=== PATIENT | male | born 1955 | race Caucasian/White ===

== ENCOUNTER → 2018-12-14 | Outpatient (CLI) | payer MEDICARE ==
--- NOTE | 2018-12-14 09:26 | US ---
EXAMINATION TYPE: US kidneys/renal and bladder DATE OF EXAM: 12/14/2018 COMPARISON: NONE CLINICAL HISTORY: Z13.6 Screening for Abdominal aortic aneurysm, UTI. EXAM MEASUREMENTS: Right Kidney: 10.2 x 4.7 x 5.6 cm Left Kidney: 10.8 x 5.0 x 4.8 cm Post Void Residual Volume: 114.4 mL Right Kidney: No hydronephrosis or masses seen Left Kidney: No hydronephrosis or masses seen possible non obstructing calculi mid anterior Bladder: wnl Bilateral Jets seen: Yes Normal Post Void Residual: No IMPRESSION: 1. Punctate renal cortical calcification left kidney. 2. No suspicious acute ultrasound abnormality
--- NOTE | 2018-12-14 10:13 | US ---
EXAMINATION TYPE: US duplex aorta DATE OF EXAM: 12/14/2018 COMPARISON: NONE CLINICAL HISTORY: Z13.6 Screening for Abdominal aortic aneurysm, UTI. EXAM MEASUREMENTS: Abdominal Aorta: Proximal: 2.2cm Mid: 1.5 cm Distal: 1.3 cm Bifurcation: RINA: 0.8 cm , DOROTEO 0.7cm IMPRESSION: 1. No aneurysmal dilatation within the aorta on this screening ultrasound.
== END | disposition home or self-care (01) ==
LOC: RADUSWWP 06:55
PROVIDERS: ATTEND Internal Medicine
DX: N28.89 Other specified disorders of kidney and ureter (principal); Z13.6 Encounter for screening for cardiovascular disorders
CPT/HCPCS: 76770; 93979

== ENCOUNTER → 2018-12-28 | Outpatient (CLI) | payer MEDICARE ==
--- NOTE | 2018-12-28 10:32 | CTL ---
EXAMINATION TYPE: CT Low Dose Lung DATE OF EXAM ORDERED: 12/28/2018 HISTORY: Prior history tobacco use. Lung cancer screening CT DLP: [address] CTDI: 2.03 mGy Automated exposure control for dose reduction was used. SCREENING VISIT: 1 COMPARISON: Chest x-ray 08/14/2014 TECHNIQUE: Low dose computed tomography scan was performed through the chest at 1 mm thick sections a nd reconstructed images in the coronal plane at [address] DIAGNOSTIC QUALITY: Satisfactory FINDINGS: LUNG NODULES: None. There are nodule with a size of 3 mm. Right upper lobe nodule is calcified on CT image 41, 60, 108, 1 26 and 128, 194, 139 and 144, 1:30 and left lower lobe axial image 247, 103, 94, 76, 31 and 34, 36. LUNGS: COPD: Severity: Mild Fibrosis: Severity: None Lymph nodes: None Other findings: Small amount of possible retained secretions along the trachea RIGHT PLEURAL SPACE: Effusion: None Calcification: None Thickening: None Pneumothorax: None LEFT PLEURAL SPACE: Effusion: None Calcification: None Thickening: None Pneumothorax: None HEART: Heart Size: Small Coronary calcification: None Pericardial effusion: None OTHER FINDINGS: Upper abdomen: Small hiatal hernia Bony thorax: Thoracic spondylosis is present, flowing anterior osteophytes with relative preservation of disc base may be indicative of diffuse idiopathic skeletal hyperostosis Supraclavicular region: Normal Other: IMPRESSION: Benign FOLLOW UP CT CHEST RECOMMENDATION: [address] LUNG RAD: 2
== END ==
LOC: RADCTMAIN 07:21
PROVIDERS: ATTEND Internal Medicine
DX: Z12.2 Encounter for screening for malignant neoplasm of respiratory organs (principal); Z87.891 Personal history of nicotine dependence

== ENCOUNTER → 2020-05-09 | Outpatient (CLI) | payer MEDICARE ==
--- NOTE | 2020-05-09 08:16 | CTL ---
EXAMINATION TYPE: CT Low Dose Lung DATE OF EXAM ORDERED: 05/09/2020 HISTORY: . Lung cancer screening CT DLP: [address] CTDI: 2.2 mGy Automated exposure control for dose reduction was used. SCREENING VISIT: COMPARISON: 12/28/2018 TECHNIQUE: Low dose computed tomography scan was performed through the chest at 1 mm thick sections a nd reconstructed images in the coronal plane at [address] DIAGNOSTIC QUALITY: Satisfactory FINDINGS: LUNG NODULES: There are multiple sub-5 mm nodules some of which are calcified similar appearance to the prior study . LUNGS: COPD: Severity: Mild to moderate Fibrosis: Severity: Mild Lymph nodes: None Other findings: Mild central basilar bronchiectasis. PLEURAL SPACE: Effusion: None Calcification: None Thickening: None Pneumothorax: None HEART: Heart Size: Normal Coronary calcification: Three-vessel dense coronary artery calcification Pericardial effusion: None OTHER FINDINGS: Small hiatal hernia. Multilevel hypertrophic and degenerative change spine. IMPRESSION: 1. Multiple sub-5 mm nodules some of which are calcified have a benign appearance and are stable. 2. 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 3. three-vessel coronary artery disease. FOLLOW UP CT CHEST RECOMMENDATION: Annual follow-up recommended in one year CT LUNG RAD: 2
== END | disposition home or self-care (01) ==
LOC: RADCTMAIN 06:55
PROVIDERS: ATTEND Internal Medicine
DX: R91.8 Other nonspecific abnormal finding of lung field (principal); J47.9 Bronchiectasis, uncomplicated; F17.200 Nicotine dependence, unspecified, uncomplicated

== ENCOUNTER → 2021-04-03 | Outpatient (CLI) | payer MEDICARE ==
[2021-04-03 10:58] LABS: HCT 49.9 % (39.0-53.0); HGB 16.9 gm/dL (13.0-17.5); MCH 30.9 pg (25.0-35.0); MCHC 33.9 g/dL (31.0-37.0); MCV 91.2 fL (80.0-100.0); Mean Platelet Volume 7.6; Platelet Count 203 k/uL (150-450); RBC 5.47 m/uL (4.30-5.90); RDW 12.6 % (11.5-15.5); WBC 10.6 k/uL (3.8-10.6)
[2021-04-03 12:36] LABS: ALT 25 U/L (4-49); AST 23 U/L (17-59); African American GFR (CKD) >90 (>60 ml/min/1.73 sqM); Albumin 4.2 g/dL (3.5-5.0); Alkaline Phosphatase 86 U/L (38-126); Anion Gap 8 mmol/L; Blood Urea Nitrogen 14 mg/dL (9-20); Calcium 9.9 mg/dL (8.4-10.2); Carbon Dioxide 27 mmol/L (22-30); Chloride 104 mmol/L (98-107); Glucose 119 mg/dL (74-99); Non-African American GFR(CKD) >90 (>60 ml/min/1.73 sqM); Potassium 4.6 mmol/L (3.5-5.1); Sodium 139 mmol/L (137-145); Total Bilirubin 0.6 mg/dL (0.2-1.3); Total Protein 6.6 g/dL (6.3-8.2)
[2021-04-04 13:43] LABS: Chol/HDL Ratio 5.48; Cholesterol 137 mg/dL (0-200); LDL Cholesterol,Calculated 81.6 mg/dL (0.0-131.0)
[2021-04-04 13:51] LABS: Prostate Specific Antigen 0.9 ng/mL (0.0-4.5)
== END ==
LOC: LABT 09:46
PROVIDERS: ATTEND Family Medicine
DX: Z00.01 Encounter for general adult medical examination with abnormal findings (principal); E78.5 Hyperlipidemia, unspecified; Z12.5 Encounter for screening for malignant neoplasm of prostate; F17.200 Nicotine dependence, unspecified, uncomplicated
CPT/HCPCS: 80053; 80061; 84153; 85027

== ENCOUNTER → 2021-05-11 | Outpatient (CLI) | payer MEDICARE ==
--- NOTE | 2021-05-11 08:49 | CTL ---
EXAMINATION TYPE: CT Low Dose Lung DATE OF EXAM ORDERED: 05/11/2021 COMPARISON: 05/11/2021 HISTORY: . Low Dose CT Lung Screening CT DLP: 124.[address] CTDI: 3.2 mGy IV CONTRAST USED: None. SCREENING VISIT: Second visit TECHNIQUE: Low dose computed tomography scan was performed through the chest at 1 millimeter thick se ctions and reconstructed images in the coronal plane at [address] DIAGNOSTIC QUALITY: Satisfactory FINDINGS: LUNG NODULES: Again noted are there are multiple sub-5 mm nodules some of which are calcified similar appearance to the prior study. LUNGS: COPD: Severity: Mild Fibrosis: Severity: Mild right upper lobe Lymph nodes: None Other findings: None RIGHT PLEURAL SPACE: Effusion: None Calcification: None Thickening: None Pneumothorax: None LEFT PLEURAL SPACE: Effusion: None Calcification: None Thickening: None Pneumothorax: None HEART: Heart Size: Mildly enlarged Coronary calcification: Three-vessel coronary artery calcifications redemonstrated. Pericardial effusion: None OTHER FINDINGS: Upper abdomen: No significant abnormality Bony thorax: Degenerative changes Supraclavicular region: No significant abnormalityOther: No significant abnormalityI IMPRESSION: 1. Stable sub-5 mm pulmonary nodules some which are calcified. 2. COPD with a mild right upper lobe fibrosis. FOLLOW UP CT CHEST RECOMMENDATION: Follow-up screening in one year. Smoking cessation recommended. CT LUNG RAD: LUNG RAD CATEGORY 2 benign
== END | disposition home or self-care (01) ==
LOC: RADCTMAIN 06:48
PROVIDERS: ATTEND Family Medicine
DX: Z12.2 Encounter for screening for malignant neoplasm of respiratory organs (principal); R91.8 Other nonspecific abnormal finding of lung field; J44.9 Chronic obstructive pulmonary disease, unspecified; J84.10 Pulmonary fibrosis, unspecified
CPT/HCPCS: 71271

== ENCOUNTER → 2022-05-31 | Outpatient (CLI) | payer MEDICARE ==
--- NOTE | 2022-05-31 12:11 | CTL ---
EXAMINATION TYPE: CT Low Dose Lung DATE OF EXAM ORDERED: 05/31/2022 HISTORY: Long-term tobacco use. Lung cancer screening CT DLP: 98.[address] CTDI: 2.4 mGy Automated exposure control for dose reduction was used. SCREENING VISIT: Third after baseline COMPARISON: Prior studies 2020 through 2018 TECHNIQUE: Low dose computed tomography scan was performed through the chest at 1 mm thick sections a nd reconstructed images in multiple planes at 1 mm and [address] DIAGNOSTIC QUALITY: Satisfactory FINDINGS: LUNG NODULES: None. No greater than 5 mm noncalcified pulmonary nodules. Redemonstration of scattered sub-5 mm pulmonary nodules several which are calcified bilaterally. LUNGS: COPD: Severity: Mild Fibrosis: Severity: None Lymph nodes: None Other findings: None RIGHT PLEURAL SPACE: Effusion: None Calcification: None Thickening: None Pneumothorax: None LEFT PLEURAL SPACE: Effusion: None Calcification: None Thickening: None Pneumothorax: None HEART: Heart Size: Normal Coronary Calcification: Mild to moderate Pericardial Effusion: None OTHER FINDINGS: Upper abdomen: Cholecystectomy clips are redemonstrated Bony thorax: Slight underlying scoliotic curvature. Bridging osteophytes anteriorly and laterally in the thoracic spine redemonstrated. Supraclavicular region: None Other: None IMPRESSION: No greater than 5 mm noncalcified pulmonary nodules. CT LUNG RAD AND CT CHEST RECOMMENDATION: Lung-Rad 2 Benign Appearance or Behavior: Continue annual sc reening with LDCT in 12 months. S Modifier (other clinically significant findings): None
== END | disposition home or self-care (01) ==
LOC: RADCTMAIN 11:06
PROVIDERS: ATTEND Family Medicine
DX: Z12.2 Encounter for screening for malignant neoplasm of respiratory organs (principal); Z87.891 Personal history of nicotine dependence
CPT/HCPCS: 71271

== ENCOUNTER → 2023-06-13 | Outpatient (CLI) | payer MEDICARE ==
--- NOTE | 2023-06-13 11:18 | CTL ---
EXAMINATION TYPE: CT Low Dose Lung DATE OF EXAM ORDERED: 06/13/2023 HISTORY: . Lung cancer screening Automated exposure control for dose reduction was used. COMPARISON: Multiple previous with the most recent from 05/31/2022. TECHNIQUE: Low dose computed tomography scan was performed through the chest at 1 mm thick sections a nd reconstructed images in multiple planes at 1 mm and [address] DIAGNOSTIC QUALITY: Satisfactory FINDINGS: CHEST: Lungs: Mild upper lobe predominant centrilobular emphysema. Scattered calcified granulomas also note d. Bronchial wall thickening and mild inflammatory airway changes are seen diffusely. 1.5 mm left upp er lobe pulmonary nodule series 4 image 46. This is unchanged. Pleura: Normal. Mediastinum And Nelli: Normal. Cardiovascular: There is mild vascular calcification within the thoracic aorta without evidence of an eurysmal dilation. There are moderate coronary artery calcifications. Chest Wall: Normal. Upper Abdomen: Normal. MUSCULOSKELETAL: Diffusely demineralized. Bridging anterior osteophytes are otherwise noted. IMPRESSION: 1. Unchanged left upper lobe pulmonary nodule with multiple calcified granulomas. Continue annual sc reening in 1 year. Lung RADS 2. 2. Moderate coronary calcifications. 3. Emphysema.
== END | disposition home or self-care (01) ==
LOC: RADCTMAIN 07:29
PROVIDERS: ATTEND Family Medicine
DX: Z12.2 Encounter for screening for malignant neoplasm of respiratory organs (principal); J43.2 Centrilobular emphysema; J84.10 Pulmonary fibrosis, unspecified; R91.1 Solitary pulmonary nodule; F17.210 Nicotine dependence, cigarettes, uncomplicated
CPT/HCPCS: 71271

== ENCOUNTER → 2024-07-24 | Outpatient (CLI) | payer MEDICARE ==
--- NOTE | 2024-07-30 16:04 | CTL ---
EXAMINATION TYPE: CT Low Dose Lung DATE OF EXAM ORDERED: 07/24/2024 HISTORY: Nicotine dependence. Lung cancer screening CT DLP: 112.[address] CTDI: 3.10 mGy Automated exposure control for dose reduction was used. SCREENING VISIT: Subsequent COMPARISON: 06/13/2023 TECHNIQUE: Low dose computed tomography scan was performed through the chest at 1 mm thick sections a nd reconstructed images in the coronal plane at [address] DIAGNOSTIC QUALITY: Satisfactory FINDINGS: LUNG NODULES: Present, detailed below: 1. There is a 0.3 cm nodule within the lateral right lung apex. This is better visualized current exa m. Series 5 image 46 2. There is a 0.3 cm nodule posterior lateral right apex. Series 5 image 63 3. There is a 0.3 cm nodule periphery left posterior lateral apex. Series 5 image 41. 4. 0.4 cm pleural-based nodule anterior lateral left upper lung field. This appears present previousl y Series 5 image 95. 5. 0.3 cm nodule anterior lateral left midlung. Series 5 image 103, present previously. 6. A 0.5 cm pleural-based density anterior lateral left midlung. Series 5 image 107 present previousl y. 7. Couple of punctate densities adjacent to the anterolateral right lung. Series 5 image 112. 8. 0.3 cm Punctate nodular density anterior lateral left midlung. Series 5 image 124. 9.There are a few additional punctate peripheral nodules. No new nodules are evident. No enlarging no dules are identified. LUNGS: COPD: Severity: None Fibrosis: Severity: None Lymph nodes: None Other findings: None RIGHT PLEURAL SPACE: Effusion: None Calcification: None Thickening: None Pneumothorax: None LEFT PLEURAL SPACE: Effusion: None Calcification: None Thickening: None Pneumothorax: None HEART: Other: Ascending thoracic aorta at the level the main pulmonary artery measures 3.8 cm. The main pul monary artery at the bifurcation measures 2.3 cm. Heart Size: Normal Coronary calcification: Mild Pericardial effusion: None OTHER FINDINGS: Upper abdomen: There is mild prominence of the adrenal glands measuring 1.2 on the right and 1.0 cm o n the left. Bony thorax: Normal Supraclavicular region: Normal IMPRESSION: Stable multiple punctate nodules upper midlung gan. No new or enlarging nodules eviden t. FOLLOW UP CT CHEST RECOMMENDATION: Follow-up low-dose CT chest one year CT LUNG RAD: 2 [facility], Workstation: [email or web address], 07/30/2024 4:02 PM
== END | disposition home or self-care (01) ==
LOC: RADCTMAIN 07:21
PROVIDERS: ATTEND Family Medicine
DX: Z12.2 Encounter for screening for malignant neoplasm of respiratory organs (principal); R91.8 Other nonspecific abnormal finding of lung field; F17.210 Nicotine dependence, cigarettes, uncomplicated
CPT/HCPCS: 71271